=== PATIENT | male | born 1995 | race Caucasian/White ===

== ENCOUNTER 2020-10-01 16:11 | Emergency (ER) | payer OTHER, SELFPAY ==
[2020-10-01 16:17] VITALS: BP 135/88; PULSE 85; RESP 18; TEMP 36.9; O2SAT 98
--- NOTE | 2020-10-01 18:35 | ED.GENADULT ---
HPI - General Adult General Chief complaint: Wound/Laceration Stated complaint: head lac Time Seen by Provider: 10/01/20 18:18 Source: patient Mode of arrival: ambulatory Limitations: no limitations History of Present Illness HPI narrative: Patient presents for evaluation of laceration to the scalp. He indicates he was inserting a t stand into the ground when the equipment went backward and hit him in the scalp. No loss of consciousness. Not on blood thinners. No vomiting since episode. He has a single laceration to the scalp with small amount of sanguinous drainage present. He is not diabetic. Reports moderate amount of pain in the affected area, without descriptive quality or numerical rating. He has not taken any medications for symptoms. No additional complaints or concerns. Related Data Home Medications Medication Instructions Recorded Confirmed No Home Medications 10/01/20 10/01/20 Allergies Allergy/AdvReac Type Severity Reaction Status Date / Time No Known Allergies Allergy Verified 10/01/20 16:19 Review of Systems Review of Systems: CONSTITUTIONAL: Denies fever, chills, or sweats. EYES: Denies visual changes, redness, or discharge. ENT: Denies rhinorrhea, congestion, sore throat, or otalgia. CARDIOVASCULAR: Denies chest pain, palpitations, or edema. RESPIRATORY: Denies cough or dyspnea. GASTROINTESTINAL: Denies abdominal pain, nausea, vomiting, or diarrhea. GENITOURINARY: Denies dysuria or hematuria. SKIN: Reports laceration of the scalp. Denies rash or itching. MUSCULOSKELETAL: Denies back pain, joint pain, or myalgia. NEUROLOGIC: Reports headache. Denies numbness, dizziness, or weakness. PSYCHIATRIC: Denies anxiety or depression. [facility] Past Medical History Medical History (Updated 10/01/20 @ 18:43 by ELMA Gallego, DEVYN) No pertinent past medical history Surgical History Surgical History History of tonsillectomy Family History Family History Mother No pertinent past medical history Social History Social History Smokeless tobacco user: chewing tobacco Alcohol intake: current Alcohol use details: socially Substance use: never Living arrangements: with family Gender identity (if verbalized by the patient): Male Spiritual care concerns: No Exam Narrative: GENERAL: Well-appearing, well-nourished, and in no acute distress. HEAD: Normocephalic EYES: PERRLA and EOMI. ENT: Nares clear, no rhinorrhea or epistaxis. Mucous membranes moist. Oropharynx without tonsillar hypertrophy exudate or other lesions. Bilateral TMs pearly johns nonbulging NECK: Supple. No adenopathy or masses. No carotid bruits or JVD CHEST: Clear to auscultation. No respiratory distress. No wheezes rales or rhonchi HEART: Regular rate and rhythm. No murmur heard. Normal peripheral pulses. ABDOMEN: Soft, nontender, nondistended, normal active bowel sounds. EXTREMITIES: Normal range of motion. No edema. SKIN: Approximately 3.2 cm linear laceration to the frontal aspect of the scalp extending in the right parietal region. There is a small amount of sanguinous drainage noted. warm, dry, no rash. NEURO: No focal deficits. Alert and oriented x3. PSYCH: Normal mood and affect. Course Course Emergency Course: This is a 24-year-old male who presented with complaints of scalp laceration. He had no clinical indication for imaging. Laceration was repaired with nolan and patient tolerated well. Updated on tetanus. Advised follow-up outpatient for further evaluation treatment return for worsening symptoms. Patient agreed with plan of care. Vital Signs Vital signs: Vital Signs Temperature 36.9 C 10/01/20 16:17 Pulse Rate 85 10/01/20 16:17 Respiratory Rate 18 10/01/20 16:17 Blood Pressure 135/88 10/01/20 16:17
[2020-10-01] MEDS: TETANUS,DIPHTHERIA,AC PERTUSSIS ADULT (0.5 ML) BOOSTRIX IM (18:50)
[2020-10-01 18:52] VITALS: BP 132/88; PULSE 80; RESP 20; O2SAT 100
== END 2020-10-01 18:53 | disposition home or self-care (01) ==
PROVIDERS: Emergency Provider Nurse Practitioner
DX: S01.01XA Laceration without foreign body of scalp, initial encounter (principal); F17.220 Nicotine dependence, chewing tobacco, uncomplicated; Z23 Encounter for immunization; W45.8XXA Other foreign body or object entering through skin, initial encounter
CPT/HCPCS: 12001; 90471; 90715; 99282